=== PATIENT | female | born 1995 | race Caucasian/White ===

== ENCOUNTER 2021-05-26 09:42 | Inpatient (IN) ==
[2021-05-26] MEDS ORDERED: BUTORPHANOL 2 MG/ML VIAL IV PRN (10:18)
[2021-05-26] MEDS ORDERED: MEPERIDINE 50 MG/1 ML VIAL IV PRN (10:18)
[2021-05-26] MEDS ORDERED: ONDANSETRON 4 MG/2 ML VIAL IV PRN ×2 (10:18→14:17)
[2021-05-26] MEDS ORDERED: FAMOTIDINE 20 MG/2 ML VIAL IV ONE (10:21)
[2021-05-26] MEDS ORDERED: hydrOXYzine HCL 25 MG/1 ML VIAL IM PRN (10:21)
[2021-05-26] MEDS ORDERED: ONDANSETRON 4 MG/2 ML VIAL IV ONE (10:21)
[2021-05-26] MEDS ORDERED: LACTATED RINGERS 1,000 ML IV ONE (10:21)
[2021-05-26] MEDS ORDERED: NALOXONE 0.4 MG/ML VIAL IV PRN (10:21)
[2021-05-26] MEDS ORDERED: CITRIC ACID/SODIUM CITRATE 30 ML UDCUP PO ONE (10:21)
[2021-05-26] MEDS ORDERED: ePHEDrine 50 MG/ML VIAL IV PRN (10:21)
[2021-05-26] MEDS ORDERED: PROMETHAZINE 25 MG/1 ML VIAL IM ONE (10:21)
[2021-05-26] MEDS ORDERED: diphenhydrAMINE 50 MG/1 ML VIAL IV PRN ×2 (10:21)
[2021-05-26] MEDS ORDERED: OXYTOCIN/LR 20 UNIT/1,000 ML BAG IV SCH (10:30)
[2021-05-26] MEDS ORDERED: LACTATED RINGERS 1,000 ML IV SCH (10:30)
[2021-05-26] MEDS ORDERED: fentaNYL 2 MCG/ROPIV 0.2% EPID 100 ML EPIDURAL SCH (10:30)
[2021-05-26 10:40] LABS: Basophils % 0.1 % (0.0-0.8); Eosinophils % 0.1 % (0.00-10.9); Hematocrit 34.3 VOL% (35.7-47.0); Immature Granulocytes Absolute 0.16 #; Lymphocytes % 12.5 % (21.3-54.2); Mean Corpuscular HGB Conc 32.1 GM/DL (32-36); Mean Corpuscular Volume 90.3 FL (87-102); Mean Platelet Volume 9.1 FL (9.6-12.0); Monocytes % 3.4 % (1.7-12.7); Neutrophils % 82.9 % (38.7-73.9); Platelet Count 378 T/CUMM (130-400); White Blood Count 16.4 T/CUMM (4-12)
[2021-05-26 11:12] LABS: Alanine Aminotransferase 18 U/L (13-56); Albumin 2.3 G/DL (3.4-5.0); Alkaline Phosphatase 213 U/L (45-117); Aspartate Amino Transferase 14 U/L (0-37); Bilirubin,Total < 0.39 MG/DL (0.20-1.00); Blood Urea Nitrogen 12 MG/DL (7-18); Calcium 8.6 MG/DL (8.5-10.1); Carbon Dioxide 21 MMOL/L (21-32); Estimated Glom Filtration Rate 120 ML/MIN; Glucose 85 MG/DL (74-106); Osmolality,Calculated 273.7 MOS/KG (273-304); Potassium 3.9 MMOL/L (3.5-5.1); Sodium 138 MMOL/L (136-145); Total Protein 6.4 G/DL (6.4-8.2)
[2021-05-26] MEDS ORDERED: METHYLERGONOVINE 0.2 MG/1 ML AMP ONE (13:22)
[2021-05-26] MEDS ORDERED: CARBOPROST TROMETHAMINE 250 MCG/ML AMP IM ONE (13:22)
[2021-05-26] MEDS ORDERED: OXYTOCIN/LR 0 UNIT/0 ML BAG IV ONE (13:22)
[2021-05-26] MEDS ORDERED: miSOPROStoL 200 MCG TABLET ONE (13:22)
[2021-05-26] MEDS ORDERED: LIDOCAINE 1% 50 ML VIAL ONE (14:02)
[2021-05-26] MEDS ORDERED: LANOLIN 50% CREAM 0.3 OZ TUBE TOP PRN (14:17)
[2021-05-26] MEDS ORDERED: BENZOCAINE 20%/MENTHOL 0.5% SPRAY 56 GM CAN TOP PRN (14:17)
[2021-05-26] MEDS ORDERED: BISACODYL 10 MG SUPP RECTAL PRN (14:17)
[2021-05-26] MEDS ORDERED: HYDROCORTISONE 2.5% RECTAL CREAM 30 GM TUBE TOP PRN (14:17)
[2021-05-26] MEDS ORDERED: DIPH/TET/ACEL PERT BOOSTER VACCINE 0.5 ML VIAL IM ONE (14:17)
[2021-05-26] MEDS ORDERED: WITCH HAZEL PADS 100/JAR TOP PRN (14:17)
[2021-05-26] MEDS ORDERED: ACETAMINOPHEN 325 MG TABLET PO PRN (14:17)
[2021-05-26] MEDS ORDERED: RHO(D) IMMUNE GLOBULIN 300 MCG SYRINGE IM ONE (14:17)
[2021-05-26] MEDS ORDERED: OXYTOCIN/LR 20 UNIT/1,000 ML BAG IV ONE ×2 (14:17→22:31)
[2021-05-26] MEDS ORDERED: MEASLES/MUMPS/RUBELLA VACCINE 0.5 ML VIAL SUBCUT ONE (14:17)
[2021-05-26 14:52] LABS: Cord Arterial Blood HCO3 23.4 MMOL/L; Cord Venous Blood HCO3 21.3 MMOL/L; Cord Venous Blood PCO2 45.7 MMHG; Cord Venous Blood PO2 28.7 MMHG
[2021-05-26] MEDS: oxyCODONE/ACETAMINOPHEN 5-325 MG TABLET PO PRN ×2 (16:44→18:05)
[2021-05-26] MEDS: IBUPROFEN 800 MG TABLET PO PRN ×2 (16:44→22:31)
[2021-05-26] MEDS ORDERED: SIMETHICONE CHEW 125 MG TABLET PO PRN (19:46)
[2021-05-26] MEDS ORDERED: SIMETHICONE CHEW 80 MG TABLET PO PRN (20:09)
[2021-05-26] MEDS ORDERED: METOCLOPRAMIDE 10 MG TABLET PO PRN (20:49)
[2021-05-26] MEDS: DOCUSATE SODIUM 100 MG CAPSULE PO SCH (23:02)
[2021-05-27 04:39] LABS: Basophils % 0.1 % (0.0-0.8); Eosinophils # 0.1 10*3/uL (0.0-0.87); Eosinophils % 0.3 % (0.00-10.9); Hematocrit 28.9 VOL% (35.7-47.0); Hemoglobin 9.3 GM/DL (12.0-16.0); Immature Granulocytes % 0.7 %; Immature Granulocytes Absolute 0.13 #; Lymphocytes # 3.4 10*3/uL (1.4-4.0); Mean Corpuscular HGB Conc 32.2 GM/DL (32-36); Mean Platelet Volume 10.1 FL (9.6-12.0); Monocytes % 5.1 % (1.7-12.7); Neutrophils % 74.8 % (38.7-73.9); Platelet Count 307 T/CUMM (130-400); Red Blood Count 3.21 MC/CUMM (3.8-5.5); Red Cell Distribution Width 13.7 % (9.3-17.3); White Blood Count 18.1 T/CUMM (4-12)
[2021-05-27] MEDS: oxyCODONE/ACETAMINOPHEN 5-325 MG TABLET PO PRN ×4 (05:07→21:38)
[2021-05-27] MEDS: DOCUSATE SODIUM 100 MG CAPSULE PO SCH ×2 (08:01→21:38)
[2021-05-27] MEDS: MULTIVITAMIN (PRENATAL) TABLET PO SCH (08:01)
[2021-05-27] MEDS: IBUPROFEN 800 MG TABLET PO PRN ×2 (11:16→18:34)
[2021-05-28] MEDS: IBUPROFEN 800 MG TABLET PO PRN (03:45)
[2021-05-28] MEDS: MULTIVITAMIN (PRENATAL) TABLET PO SCH (08:10)
[2021-05-28] MEDS: DOCUSATE SODIUM 100 MG CAPSULE PO SCH (08:10)
[2021-05-28] MEDS: oxyCODONE/ACETAMINOPHEN 5-325 MG TABLET PO PRN (08:11)
[2021-05-28 08:35] VITALS: BP 96/57
== END 2021-05-28 15:31 | disposition home or self-care (01) | DRG 560 ==
LOC: N.LD 09:42 → N.OB 21:40
PROVIDERS: ADMIT Specialist; ATTEND Specialist